=== PATIENT | male | born 1955 | race Caucasian/White ===

== ENCOUNTER 2018-05-13 01:56 | Outpatient (CLI) | payer BC, SELFPAY ==
[2018-05-13 07:51] LABS: Hemoglobin A1C 5.8 % (4.5-6.2)
[2018-05-13 08:50] LABS: ALT 34 U/L (12-78); AST 22 U/L (15-37); Albumin 3.9 g/dL (3.4-5.0); Alkaline Phosphatase 84 U/L (46-116); Anion Gap 7.9 mmol/L (3-11); BUN 22 mg/dL (7-18); Bilirubin, Total 0.3 mg/dL (0.2-1.0); CO2 29.1 mmol/L (21.0-32.0); CREATININE 0.82 mg/dL (0.70-1.30); Calcium 9.2 mg/dL (8.5-10.1); Chloride 105 mmol/L (98-107); Cholesterol 220 mg/dL (50-200); Glucose 97 mg/dL (70-100); HDL Cholesterol 56 mg/dL (40-60); LDL CHOLESTEROL 146 mg/dL (<100); Potassium 4.6 mmol/L (3.5-5.1); Sodium 142 mmol/L (136-145); TSH (W/Ref FT4) 3.05 uIU/mL (0.358-3.74); Triglyceride 62 mg/dL (30-150); Vitamin B12 669 pg/mL (193-986)
[2018-05-14 13:11] LABS: Lyme Ab w Rflx to Lyme Confirm Negative
[2018-05-14 15:27] LABS: ANA Interpretation Negative (NEGAT)
== END 2018-05-13 02:16 ==
PROVIDERS: PCP Nurse Practitioner; Visit Provider Nurse Practitioner
DX: R20.2 Paresthesia of skin (principal); E78.5 Hyperlipidemia, unspecified
CPT/HCPCS: 36415; 80053; 80061; 83721; 82607; 83036; 84443; 86038; 86618

== ENCOUNTER 2018-05-17 00:20 | Outpatient (CLI) | payer BC, SELFPAY ==
--- NOTE | 2018-05-17 16:01 | DI.MRI_ITS ---
SYMPTOMS/DIAGNOSIS: RIGHT SCIATICA X 4 MOS, M54.31, RIGHT HIP PAIN, RIGHT LEG PAIN LUMBAR MRI: The study was conducted according to the usual protocol. Degenerative endplate marrow changes are demonstrated. There is no evidence of an acute fracture. The alignment is normal. The spinal cord appears intact with no intrinsic abnormality or evidence of cord compression. At T12-L1, degenerative disc disease and spondylitic changes are noted. There is no stenosis. At L1-2, degenerative disc disease and spondylitic changes with no central canal stenosis and mild to moderate bilateral foraminal stenosis is identified. At L2-3, degenerative disc disease and facet joint changes are evident. A broad-based 3 mm right paracentral disc protrusion is identified. There is mild central canal stenosis and mild bilateral foraminal stenosis. At L3-4, degenerative disc disease and facet joint DJD is noted. There is moderate central canal stenosis and mild right and mild to moderate left foraminal stenosis. At L4-5, degenerative disc disease is also identified and there are facet joint degenerative changes. Borderline central canal narrowing is identified and moderate bilateral foraminal stenosis is seen. At L5-S1, degenerative disc disease and spondylitic changes are noted. There is no evidence of central canal stenosis. Moderate bilateral foraminal stenosis is also evident. The soft tissues are unremarkable. SUMMARY: Degenerative changes are noted throughout the lumbar spine. A 3 mm right paracentral disc protrusion is noted at L2-3.
--- NOTE | 2018-05-19 15:52 | DI.VRAD_ITS ---
EXAM: MR Lumbar Spine Without Contrast. EXAM DATE/TIME: 05/17/2018 3:52 PM CLINICAL HISTORY: 62 years old, male; Signs and symptoms; Sciatica; Right TECHNIQUE: Multiplanar magnetic resonance images of the lumbar spine without intravenous contrast. COMPARISON: No relevant prior studies available. FINDINGS: Vertebrae: See Marrow Finding. Marrow: Degenerative endplate marrow signal changes. No acute fracture. Alignment anatomic. Spinal cord: Normal signal. No cord compression. DISCS/SPINAL CANAL/NEURAL FORAMINA: T12-L1: Degenerative disc and spondylitic changes. No stenosis. L1-L2: Degenerative disc and spondylitic changes. No central canal stenosis. Mild to moderate bilateral foraminal stenosis. L2-L3: Degenerative disc and spondylitic changes. Broad-based 3 mm right paracentral disc protrusion. Mild central canal stenosis. Mild bilateral foraminal stenosis. L3-L4: Degenerative disc and spondylitic changes. Moderate central canal stenosis. Mild right and mild to moderate left foraminal narrowing. L4-L5: Degenerative disc and spondylitic changes. Borderline central canal narrowing. Moderate bilateral foraminal stenosis. L5-S1: Degenerative disc and spondylitic changes. No central canal stenosis. Moderate bilateral foraminal stenosis. Soft tissues: Unremarkable. IMPRESSION: Degenerative changes as described. 3 mm right paracentral disc protrusion L2-L3. Dictated and Authenticated by: Jun Valenzuela MD. Ordering:AMARI Sawyer MD
== END 2018-05-17 00:40 ==
PROVIDERS: PCP Nurse Practitioner; Visit Provider Chiropractor Orthopedic
DX: M54.31 Sciatica, right side (principal); M25.551 Pain in right hip; M79.604 Pain in right leg; M51.16 Intervertebral disc disorders with radiculopathy, lumbar region
CPT/HCPCS: 72148

== ENCOUNTER 2020-06-18 13:13 | Outpatient (REF) | payer BC, SELFPAY ==
[2020-06-18 19:30] LABS: HCT 42.2 % (40.0-50.0); MCHC 33.2 % (32.0-36.0); MCV 90.4 fL (80-95); MPV 11.4 fL (8.0-11.0); Platelet Count 307 10^3/uL (130-400); RBC 4.67 10^6/uL (4.36-5.78); RDW 12.3 % (11.8-14.1); RDW-SD 40.7 fL; WBC 8.44 10^3/uL (4.4-10.8)
[2020-06-18 20:15] LABS: ESR 9 mm/hr (1-20)
[2020-06-18 20:17] LABS: ALT 40 U/L (16-63); AST 32 U/L (15-37); Albumin 4.2 g/dL (3.4-5.0); Alkaline Phosphatase 87 U/L (46-116); Anion Gap 8.3 mmol/L (3-11); BUN 26 mg/dL (7-18); Bilirubin, Total 0.5 mg/dL (0.2-1.0); CO2 28.7 mmol/L (21.0-32.0); CREATININE 0.92 mg/dL (0.70-1.30); Calcium 9.1 mg/dL (8.5-10.1); Calculated LDL 182 mg/dL (<100); Chloride 104 mmol/L (98-107); Cholesterol 270 mg/dL (<200); Glucose 96 mg/dL (74-106); HDL Cholesterol 69 mg/dL (40-60); Potassium 4.6 mmol/L (3.5-5.1); Sodium 141 mmol/L (136-145); TSH (W/Ref FT4) 3.39 uIU/mL (0.36-3.74); Total Protein 7.5 g/dL (6.4-8.2); Triglyceride 97 mg/dL (<150)
[2020-06-18 20:19] LABS: Hemoglobin A1C 5.6 % (<5.7)
[2020-06-18 20:36] LABS: C-Reactive Protein 0.05 mg/dL (0.0-0.3)
[2020-06-20 09:51] LABS: HIV-1/2 Ag & Ab Screen Negative (Negative)
[2020-06-20 10:25] LABS: HBs Antibody, Qual Negative (See Note); HBs Antibody, Quant <3.1 mIU/mL (See Note); Hepatitis B Core Antibody Negative (Negative); Hepatitis B surface Ag Negative (Negative); Hepatitis C Ab w Rflx HCV PCR Negative (Negative)
== END 2020-06-18 13:33 ==
LOC: LBO 13:13
PROVIDERS: PCP Nurse Practitioner; Referring Provider Nurse Practitioner; Visit Provider Nurse Practitioner
DX: I10 Essential (primary) hypertension (principal); Z87.891 Personal history of nicotine dependence; R63.4 Abnormal weight loss; E11.9 Type 2 diabetes mellitus without complications
CPT/HCPCS: 80053; 80061; 85027; 85652; 86704; 86706; 86803; 87340; 87389; 83036; 84443; 86140

== ENCOUNTER 2024-05-03 08:25 | Outpatient (CLI) | payer MEDICARE, BC, SELFPAY ==
--- NOTE | 2024-05-03 08:15 | RT.EKG_ITS ---
APPROVED REPORT Exam: Resting ECG Reason for Exam: ED Patient Location: O HR:58 bpm ECG Measurements Heart Rate 58 AXIS MT 161 P 15 QRSd 107 QRS 36 QT 436 T 23 QTc 429 Conclusion Sinus rhythm...normal P axis, V-rate 50- 99 Normal Electrocardiogram
== END 2024-05-03 08:26 | disposition home or self-care (01) ==
LOC: DI.KIM 08:26
PROVIDERS: PCP Nurse Practitioner; Visit Provider Nurse Practitioner
DX: N52.9 Male erectile dysfunction, unspecified (principal)
CPT/HCPCS: 93010

== ENCOUNTER 2024-05-13 01:20 | Outpatient (CLI) | payer MEDICARE, BC, SELFPAY ==
[2024-05-13 07:50] LABS: Abs Immature Grans 0.01 10^3/uL (0.0-0.06); Absolute Basophil Count 0.08 10^3/uL (0.0-0.2); Absolute Eosinophil Count 0.44 10^3/uL (0.0-0.7); Absolute Lymphocyte Count 2.33 10^3/uL (1.2-3.4); Absolute Monocyte Count 0.48 10^3/uL (0.1-0.8); Absolute Neutrophil Count 3.78 10^3/uL (1.2-6.7); Basophils % 1.1 %; Eosinophils % 6.2 %; HCT 40.9 % (40.0-50.0); HGB 13.7 g/dL (13.5-17.5); Immature Grans % 0.1 %; Lymphocytes % 32.7 %; MCH 30.3 pg (27.0-33.0); MCHC 33.5 % (32.0-36.0); MCV 91 fL (80-95); Monocytes % 6.7 %; Neutrophils % 53.2 %; Platelet Count 294 10^3/uL (130-400); RBC 4.52 10^6/uL (4.36-5.78); RDW 12.2 % (11.8-14.1); RDW-SD 40.6 fL; WBC 7.12 10^3/uL (4.4-10.8)
[2024-05-13 07:53] LABS: ESR 1 mm/hr (0-20)
[2024-05-13 07:56] LABS: Hemoglobin A1C 5.7 % (<5.7)
[2024-05-13 08:30] LABS: ALT 24 U/L (16-63); AST 20 U/L (15-37); Albumin 3.8 g/dL (3.4-5.0); Alkaline Phosphatase 109 U/L (46-116); BUN 17 mg/dL (7-18); Bilirubin, Total 0.58 mg/dL (0.2-1.0); CREATININE 0.9 mg/dL (0.70-1.30); Calcium 9.1 mg/dL (8.5-10.1); Calculated LDL 161 mg/dL (<100); Chloride 106 mmol/L (98-107); Cholesterol 245 mg/dL (<200); Estimated GFR 93.03 (mL/min/1.73m2); Glucose 95 mg/dL (74-106); HDL Cholesterol 69 mg/dL (40-60); Potassium 4.5 mmol/L (3.5-5.1); Sodium 143 mmol/L (136-145); TSH (W/Ref FT4) 4.54 uIU/mL (0.36-3.74); Total Protein 7.3 g/dL (6.4-8.2); Triglyceride 78 mg/dL (<150)
[2024-05-13 08:52] LABS: C-Reactive Protein < 0.50 mg/dL (<or=0.5)
[2024-05-13 10:10] LABS: Vitamin D 25 Total 138.5 ng/mL (30-100)
[2024-05-16 09:31] LABS: Anaplasma phagocytophilum Negative (Negative); B. miyamotoi PCR Negative (Negative); Babesia divergens/MO-1 Negative (Negative); Babesia duncani Negative (Negative); Babesia microti Negative (Negative); Ehrlichia chaffeensis Negative (Negative); Ehrlichia ewingii/canis Negative (Negative); Ehrlichia muris eauclairensis Negative (Negative)
[2024-05-16 10:47] LABS: Lyme Ab w Rflx to Lyme Confirm Negative (Negative)
== END 2024-05-13 01:21 | disposition home or self-care (01) ==
LOC: LBO 01:20
PROVIDERS: PCP Nurse Practitioner; Referring Provider Nurse Practitioner; Visit Provider Nurse Practitioner
DX: R73.01 Impaired fasting glucose (principal); R53.83 Other fatigue; G47.33 Obstructive sleep apnea (adult) (pediatric); E78.5 Hyperlipidemia, unspecified; E55.9 Vitamin D deficiency, unspecified; R25.2 Cramp and spasm
CPT/HCPCS: 36415; 80053; 80061; 82306; 85652; 87798; 83036; 84439; 84443; 85025; 86140; 86618

== ENCOUNTER 2024-07-11 02:36 | Outpatient (CLI) | payer MEDICARE, BC, SELFPAY ==
[2024-07-11 08:43] LABS: Vitamin D 25 Total 99.2 ng/mL (30-100)
== END 2024-07-11 02:37 | disposition home or self-care (01) ==
LOC: LBO 02:36
PROVIDERS: PCP Nurse Practitioner; Referring Provider Nurse Practitioner; Visit Provider Nurse Practitioner
DX: E55.9 Vitamin D deficiency, unspecified (principal); R79.9 Abnormal finding of blood chemistry, unspecified; T45.2X1A Poisoning by vitamins, accidental (unintentional), initial encounter
CPT/HCPCS: 36415; 82306; 83735

== ENCOUNTER 2025-05-11 01:37 | Outpatient (CLI) | payer MEDICARE, BC, SELFPAY ==
[2025-05-11 08:18] LABS: Hemoglobin A1C 5.4 % (<5.7)
[2025-05-11 08:34] LABS: ALT 27 U/L (10-49); AST 29 U/L (<34); Albumin 4.4 g/dL (3.2-5.0); Alkaline Phosphatase 81 U/L (46-116); Anion Gap 6.4 mmol/L (3-11); BUN 20 mg/dL (9-23); Bilirubin, Total 0.8 mg/dL (0.2-1.2); CO2 29.6 mmol/L (20.0-31.0); Calcium 9.2 mg/dL (8.3-10.6); Chloride 106 mmol/L (98-107); Glucose 95 mg/dL (74-106); Potassium 4.7 mmol/L (3.5-5.1); Sodium 142 mmol/L (136-145); Total Protein 7.2 g/dL (5.7-8.2)
[2025-05-11 08:36] LABS: TSH (W/Ref FT4) 3.03 uIU/mL (0.55-4.78)
[2025-05-11 18:43] LABS: PSA, Screening 0.1 ng/mL (<=4.5)
== END 2025-05-11 01:38 | disposition home or self-care (01) ==
LOC: LBO 01:37
DX: R73.03 Prediabetes (principal); Z00.00 Encounter for general adult medical examination without abnormal findings; Z12.5 Encounter for screening for malignant neoplasm of prostate; R63.4 Abnormal weight loss; R79.89 Other specified abnormal findings of blood chemistry
CPT/HCPCS: 36415; 80053; 84153; 83036; 84443